=== PATIENT | female | born 1980 | race Caucasian/White ===

== ENCOUNTER 2019-10-06 11:19 | Emergency (ER) | payer OTHER ==
[~2019-10-06] VITALS: Ht 162.6 cm; Wt 59.0 kg
--- NOTE | 2019-10-06 11:30 | NUR ---
Patient is AOx4, speaking in complete sentences, speech is clear. Patient is able to follow /comprehend directions. Gait is stable. No cardiovascular distress noted. Rate and rhythm are regular. No CP. No respiratory distress noted. Respirations even & unlabored with symmetrical chest rise. No adventitious sounds noted. Chief complaint: Patient comes in with c/o HEADACHE FOR 5DAYS, pt reports spinning headache getting worse, occipital area, +light sensitivity, denies tinnitus, denies nvd Patient denies Fever/Chills. No recent travel. NKDA. - ETOH / -recreational drug use/ nonsmoker. pt ambulatory ERMD AT BEDSIDE FOR HX AND PHYSICAL
--- NOTE | 2019-10-06 11:48 | NUR ---
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
--- NOTE | 2019-10-06 11:57 | NUR ---
PT BACK FR CT VIA JULIO MONITORED ACCORDINGLY
--- NOTE | 2019-10-06 12:12 | NUR ---
ERMD AT BEDSIDE FOR UPDATE Patient discharged to home in stable conditon. Written and verbal after care instructions given. Patient verbalizes understanding of instructions. AMBULATORY W/ STABLE GAIT ALL BELONGINGS W/ PT
[2019-10-06 12:17] VITALS: BP 115/74
[2019-10-06 12:49] LABS: *URINE HCG, QUAL NEGATIVE (NEGATIVE)
== END 2019-10-06 12:17 | disposition home or self-care (01) ==
LOC: ER 11:19
DX: R51 Headache (principal)
CPT/HCPCS: 70450; 84703; A4663

== ENCOUNTER 2021-05-07 10:29 | Emergency (ER) | payer OTHER ==
[~2021-05-07] VITALS: Ht 162.6 cm; Wt 63.5 kg
--- NOTE | 2021-05-07 11:27 | NUR ---
AT BEDSIDE FOR EVALUATION.
[2021-05-07] MEDS ORDERED: predniSONE 50 MG TABLET PO ONE (11:30)
[2021-05-07] MEDS ORDERED: FAMOTIDINE 20 MG TABLET PO ONE (11:30)
[2021-05-07] MEDS ORDERED: PRED50TA PO (11:38)
[2021-05-07] MEDS ORDERED: FAMO40TA71 PO (11:38)
[2021-05-07] MEDS ORDERED: predniSONE 50 MG TABLET ONE (11:43)
[2021-05-07] MEDS ORDERED: FAMOTIDINE 20 MG TABLET ONE (11:45)
--- NOTE | 2021-05-07 11:45 | NUR ---
MEDICATED PER MD ORDER. DISCHARHE INSTRUCTIONS RENDERED. PRESCRIPTIONS SENT TO PT'S [facility] OF CHOICE.
[2021-05-07 11:47] VITALS: BP 134/83
== END 2021-05-07 11:48 | disposition home or self-care (01) ==
LOC: ER 10:29
DX: L25.9 Unspecified contact dermatitis, unspecified cause (principal)
CPT/HCPCS: 99283; J7512; A4663

== ENCOUNTER → 2022-04-05 | Emergency (ER) | payer OTHER ==
[~2022-04-05] VITALS: Ht 162.6 cm; Wt 63.5 kg
[~2022-04-05] MED LIST: FAMO40TA71 PO; PRED50TA PO
== END | disposition left against medical advice (07) ==
LOC: ER 10:48
DX: Z53.21 Procedure and treatment not carried out due to patient leaving prior to being seen by health care provider (principal)

== ENCOUNTER 2022-07-02 10:31 | Emergency (ER) | payer OTHER ==
[~2022-07-02] VITALS: Ht 162.6 cm; Wt 63.5 kg
[2022-07-02] MEDS ORDERED: ACETAMINOPHEN 325 MG TABLET PO ONE (11:15)
--- NOTE | 2022-07-02 11:17 | NUR ---
PT SEEN AND EVALUATED BY MD. URINE SPECIMEN TO LAB.
[2022-07-02 11:35] LABS: HEMATOCRIT 34.9 % (31.2-41.9); MEAN CORPUSCULAR HEMOGLOBIN 26.1 uug (24.7-32.8); MEAN CORPUSCULAR VOLUME 80.3 fL (75.5-95.3); PLATELET COUNT (AUTO) 277 K/uL (179-408)
[2022-07-02 11:38] LABS: *BILIRUBIN,URIN NEGATIVE (NEGATIVE); *BLOOD, URINE NEGATIVE (NEGATIVE); *CLARITY,URINE CLEAR (CLEAR); *COLOR,URINE YELLOW (YELLOW); *KETONES,URINE NEGATIVE (NEGATIVE); *UROBILINOGEN,URINE 0.2 E.U./dl (NORMAL); LEUKOCYTE ESTERASE ,URINE 1+ (NEGATIVE); NITRITE, URINE NEGATIVE (NEGATIVE); PH,URINE 6.5 (5.0-8.0); UGLUCOSE NEGATIVE (NEGATIVE)
[2022-07-02] MEDS ORDERED: ACETAMINOPHEN 325 MG TABLET ONE (11:44)
[2022-07-02 12:06] LABS: BILIRUBIN,TOTAL 0.3 mg/dL (0.2-1.0); CREATININE 0.8 mg/dL (0.6-1.3); POTASSIUM 3.9 mmol/L (3.5-5.1); TOTAL PROTEIN, SERUM 7.9 g/dL (6.4-8.2)
[2022-07-02] MEDS ORDERED: NITR100C6 PO (13:15)
[2022-07-02 13:23] VITALS: BP 138/88
--- NOTE | 2022-07-02 13:23 | NUR ---
Patient discharged to home in stable condition. Written and verbal after care instructions given. Patient verbalizes understanding of instructions. Stressed follow up or return to ER for worsening s/s.
[2022-07-02 18:41] LABS: BACTERIA,URINE MANY /HPF (NONE SEEN); RBC,URINE 0-3 /HPF (0-3); SQUAMOUS EPITHELIAL CELL,UR MANY /HPF (NONE SEEN)
== END 2022-07-02 13:24 | disposition home or self-care (01) ==
LOC: ER 10:31
DX: R30.0 Dysuria (principal); Z87.440 Personal history of urinary (tract) infections
CPT/HCPCS: 36415; 85025; A4663

== ENCOUNTER 2022-09-16 12:13 | Emergency (ER) | payer OTHER ==
[~2022-09-16] VITALS: Ht 157.5 cm; Wt 63.5 kg
[~2022-09-16 12:13] MED LIST changes: +NITR100C6 PO
--- NOTE | 2022-09-16 12:28 | NUR ---
[email or web address], medical screening exam in progress
--- NOTE | 2022-09-16 13:06 | NUR ---
Patient discharged to home in stable condition with brisk steady gait. Written and verbal after care instructions given. Patient verbalized understanding and compliance of instructions. Stressed follow up with primary doctor or return to ER for worsening s/s.
== END 2022-09-16 13:07 | disposition home or self-care (01) ==
LOC: ER 12:15
DX: B34.9 Viral infection, unspecified (principal); M62.830 Muscle spasm of back; Z28.310 Unvaccinated for COVID-19
CPT/HCPCS: A4663

== ENCOUNTER 2023-06-04 10:58 | Emergency (ER) | payer OTHER ==
[~2023-06-04] VITALS: Ht 162.6 cm; Wt 63.5 kg
[2023-06-04 11:21] LABS: *BILIRUBIN,URIN NEGATIVE (NEGATIVE); *BLOOD, URINE 1+ (NEGATIVE); *CLARITY,URINE CLEAR (CLEAR); *COLOR,URINE YELLOW (YELLOW); *KETONES,URINE NEGATIVE (NEGATIVE); *PROTEIN,URINE NEGATIVE (NEGATIVE); *UROBILINOGEN,URINE 0.2 E.U./dl (NORMAL); LEUKOCYTE ESTERASE ,URINE NEGATIVE (NEGATIVE); NITRITE, URINE NEGATIVE (NEGATIVE); UGLUCOSE NEGATIVE (NEGATIVE)
[2023-06-04 11:27] LABS: *URINE HCG, QUAL NEGATIVE (NEGATIVE)
[2023-06-04 11:28] LABS: BASOPHILS % (AUTO) 0.9 % (0.0-2.0); EOSINOPHILS # (AUTO) 0.1 K/uL (0.0-0.7); EOSINOPHILS % (AUTO) 1.5 % (0.0-7.0); HEMATOCRIT 28.9 % (31.2-41.9); HEMOGLOBIN 9.4 g/dL (10.9-14.3); LYMPHOCYTES # (AUTO) 1.4 K/uL (0.8-4.8); LYMPHOCYTES % (AUTO) 27.9 % (20.5-51.5); MEAN CORPUSCULAR HEMOGLOBIN 24.5 uug (24.7-32.8); MEAN CORPUSCULAR HGB CONC 33 g/dL (32.3-35.6); MEAN CORPUSCULAR VOLUME 75.1 fL (75.5-95.3); MONOCYTES # (AUTO) 0.4 K/uL (0.1-1.30); MONOCYTES % (AUTO) 8.1 % (0.0-11.0); NEUTROPHILS # (AUTO) 3.1 K/uL (1.8-8.9); NEUTROPHILS % (AUTO) 61.6 % (38.5-71.5); PLATELET COUNT (AUTO) 259 K/uL (179-408); RED BLOOD CELL COUNT(AUTO) 3.85 MIL/uL (3.63-4.92); RED CELL DISTRIBUTION WIDTH 16.1 % (12.3-17.7)
[2023-06-04 11:30] LABS: DIFFERENTIAL COMMENT 1
[2023-06-04] MEDS ORDERED: ACETAMINOPHEN 325 MG TABLET PO ONE (11:30)
[2023-06-04] MEDS ORDERED: KETOROLAC TROMETHAMINE 15 MG INJ IVP ONE (11:30)
[2023-06-04] MEDS ORDERED: IV NORMAL SALINE 1000 ML BAG IV ONE (11:30)
[2023-06-04 11:44] LABS: CALCIUM 8.8 mg/dL (8.5-10.1); CREATININE 0.7 mg/dL (0.6-1.3); POTASSIUM 3.6 mmol/L (3.5-5.1)
[2023-06-04 11:49] LABS: ALBUMIN 3.7 g/dL (3.4-5.0); BILIRUBIN,DIRECT 0.1 mg/dL (0.0-0.2); BILIRUBIN,TOTAL 0.4 mg/dL (0.2-1.0); TOTAL PROTEIN, SERUM 7.6 g/dL (6.4-8.2)
[2023-06-04 11:51] LABS: BACTERIA,URINE NONE SEEN /HPF (NONE SEEN); RBC,URINE 0-3 /HPF (0-3); SQUAMOUS EPITHELIAL CELL,UR FEW /HPF (NONE SEEN); WBC,URINE 0-3 /HPF (0-3)
[2023-06-04] MEDS ORDERED: IBUP-1955 PO (12:44)
[2023-06-04 12:53] VITALS: BP 133/90; O2SAT 100
== END 2023-06-04 12:54 | disposition home or self-care (01) ==
LOC: ER 10:58
DX: D50.9 Iron deficiency anemia, unspecified (principal); R10.9 Unspecified abdominal pain; Z79.899 Other long term (current) drug therapy
CPT/HCPCS: 99284; 74176; 80076; 80048; 81001; 84703; 83690; 85025; 36415; J7040; A4606; A4663